=== PATIENT | female | born 1960 | race Caucasian/White ===

== ENCOUNTER → 2019-10-12 10:01 | Outpatient (BNVA) | payer MEDICAID, SELFPAY | PROVIDERS: Visit Provider Nurse Practitioner | DX: F20.89 Other schizophrenia (principal); F33.2 Major depressive disorder, recurrent severe without psychotic features; G47.00 Insomnia, unspecified | CPT/HCPCS: 99213 ==

== ENCOUNTER → 2020-01-11 07:42 | Outpatient (BNVA) | payer MEDICAID, SELFPAY | PROVIDERS: Visit Provider Nurse Practitioner | DX: F33.2 Major depressive disorder, recurrent severe without psychotic features (principal); F20.89 Other schizophrenia | CPT/HCPCS: 99213 ==

== ENCOUNTER → 2020-03-18 08:17 | Outpatient (BNVA) | payer MEDICAID, SELFPAY | PROVIDERS: Visit Provider Nurse Practitioner | DX: F33.2 Major depressive disorder, recurrent severe without psychotic features (principal); F20.89 Other schizophrenia | CPT/HCPCS: 99213 ==

== ENCOUNTER → 2020-06-10 07:44 | Outpatient (BNVA) | payer MEDICAID, SELFPAY | PROVIDERS: Visit Provider Nurse Practitioner | DX: F33.2 Major depressive disorder, recurrent severe without psychotic features (principal); F20.89 Other schizophrenia | CPT/HCPCS: 99213 ==

== ENCOUNTER → 2020-09-02 08:36 | Outpatient (BNVA) | payer MEDICAID, SELFPAY | PROVIDERS: Visit Provider Nurse Practitioner | DX: F33.2 Major depressive disorder, recurrent severe without psychotic features (principal); F20.89 Other schizophrenia | CPT/HCPCS: 99214 ==

== ENCOUNTER → 2020-12-22 08:48 | Outpatient (BNVA) | payer MEDICAID, SELFPAY | PROVIDERS: Visit Provider Nurse Practitioner | DX: F33.2 Major depressive disorder, recurrent severe without psychotic features (principal); F20.89 Other schizophrenia | CPT/HCPCS: 99214 ==